=== PATIENT | female | born 2000 | race Caucasian/White ===

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

== ENCOUNTER 2018-01-19 14:13 | Emergency (ER) | payer OTHER ==
--- NOTE | 2018-01-19 16:33 | EDPHY ---
H & P Stated Complaint: pt states having menstrual cramps/same every month/no OTC meds Time Seen by Provider: 01/19/18 16:32 HPI/ROS: HPI: This is a 17-year-old female who presents with Chief Complaint: pt states having menstrual cramps/same every month/no OTC meds Location: pelvic Quality: Menstrual cramping Duration: 1 day Signs and Symptoms: no fever, + nausea, no vomiting, no hematemesis, no blood in stool, no abdominal bloating, no diarrhea, no back pain, no urinary symptoms , no vaginal discharge, no indigestion, no chest pain, no shortness of breath Timing: Acute, intermittent Severity: Moderate Context: Patient is generally healthy, presents with complaints left lower quadrant menstrual cramping that started this morning, nonradiating in nature. Described as sharp, cramping episodes that occur every 30 min to 1 hr. Patient reports that she has had to change her maxi pad approximately 2 times today in the last 9 hr. Patient reports that her menses occurs every 28-30 days. Usually last for 7 days. She reports that monthly in the 1st day or 2 of her menstrual cycle she experiences menstrual cramping. She is unable to swallow pills therefore did not take any [id number] medications. She is not sexually active. She is Nondenominational and denies ever having sexual intercourse. Patient has never seen an OBGYN or had a pelvic exam. Patient is an international student and has no primary care provider. Patient reports that she has not eaten today due to nausea but denies any vomiting, diarrhea, fevers , dysuria. She has no blood in her stool. She had a bowel movement yesterday. Modifying Factors: Has not tried any [id number] medication Comment: ROS: see HPI Constitutional: No fever, no chills, no weight loss Eyes: No blurred vision Respiratory: No shortness of breath, no cough Cardiovascular: No chest pain, no palpitations Gastrointestinal: No nausea, no vomiting, no diarrhea, no hematemesis, no blood in stool Genitourinary: No dysuria, no blood in urine Extremities: No myalgias, no edema Neurologic: No weakness, no numbness Skin: No rashes, no petechiae Hematologic: No bruising, no bleeding MEDICAL/SURGICAL/SOCIAL HISTORY: Medical history: recurrent face rash, dysmenorrhea. Does not take any regular medications. Surgical history: Denies Social history: International student. CONSTITUTIONAL: Extremely well-appearing teenage [place] female, awake and alert , no obvious distress HEENT: Atraumatic and normocephalic, PERRL, EOMI. Tympanic membranes clear. Oropharynx clear, no exudate and moist pink mucosa. Airway patent. No lymphadenopathy. No meningismus. Cardiovascular: Normal S1/S2, regular rate, regular rhythm, without murmur rub or gallop. PULMONARY/CHEST: Symmetrical and nontender. Clear to auscultation bilaterally. Good air movement. No accessory muscle usage. ABDOMEN: Soft, nondistended, mild left lower quadrant tenderness, no rebound, no guarding, no peritoneal signs, no masses or organomegaly. No CVAT. PELVIC: Patient refused due to anglican beliefs. EXTREMITIES: 2/2 pulses, strength 5/5, no deformities, no clubbing, no cyanosis or edema. NEUROLOGICAL: no focal neuro deficits. GCS 15. SKIN: Warm and dry, no erythema. no rash. Good capillary refill. Source: Patient Exam Limitations: No limitations - Personal History LMP (Females 10-55): Now Current Tetanus/Diphtheria Vaccine: Unsure - Medical/Surgical History Hx Asthma: No Hx Chronic Respiratory Disease: No Hx Diabetes: No Hx Cardiac Disease: No Hx Renal Disease: No Hx Cirrhosis: No Hx Alcoholism: No Hx HIV/AIDS: No Hx Splenectomy or Spleen Trauma: No Other PMH: recurrent face rash/menstrual cramps - Social History Smoking Status: Never smoked Constitutional: Initial Vital Signs Temperature (C) 36.9 C 01/19/18 14:28 Heart Rate 77 01/19/18 14:28 Respiratory Rate 18 01/19/18 14:28 Blood Pressure 129/88 H 01/19/18 14:28 O2 Sat (%) 99 01/19/18 14:28 O2 Delivery Mode Room Air Allergies/Adverse Reactions: No Known Allergies Allergy (Verified 01/19/18 14:28) Home Medications: Medication Instructions Recorded Acetaminophen [Tylenol 650/20.3ML 650 mg PO Q4 PRN #240 ml 01/19/18 Oral Liq (*)] Ibuprofen [Advil] 600 mg PO Q8 PRN #72 tab.chew 01/19/18 Medical Decision Making - Diagnostics Imaging Results: Imaging Impressions Pelvic/Renal Ultrasound 01/19/18 16:41 Impression: Normal ultrasound pelvis. ED Course/Re-evaluation: Labs, urinalysis, IV fluids, IV medications, pelvic ultrasound ordered Due to patient's anglican beliefs only abdominal ultrasound portion of the exam will be performed per patient request. Vital signs reviewed and stable. No systemic signs. Given 1 L normal saline, IV Toradol with adequate relief of pain 1752: Labs reviewed and grossly unremarkable and showed no signs of anemia/ acute kidney injury/electrolyte imbalance/transaminitis Urinalysis reviewed; no signs of infection. Blood noted consistent with menses. PELVIC: normal external genitalia, normal cervix, cervical os was closed, no cervical motion tenderness, no adnexal mass, no discharge, no bleeding. The exam was performed with a bank teller machine mechanic. Ultrasound shows no signs of ovarian torsion/ovarian cyst/free fluid Advised supportive care and development chemist follow-up This patient was seen under the supervision of my secondary supervising physician. I evaluated care for this patient independently. Differential Diagnosis: Abdominal pain in a female including but not limited to ovarian cyst, pelvic inflammatory disease, ovarian torsion, urinary tract infection, and appendicitis. - Data Points Laboratory Results: Laboratory Results 01/19/18 16:49 01/19/18 16:49 01/19/18 01/19/18 01/19/18 17:15 16:49 16:49 WBC RBC Hgb Hct MCV MCH MCHC RDW Plt Count MPV Neut % (Auto) Lymph % (Auto) [place] % (Auto) Eos % (Auto) Baso % (Auto) Nucleat RBC Rel Count Absolute Neuts (auto) Absolute Lymphs (auto) Absolute Monos (auto) Absolute Eos (auto) Absolute Basos (auto) Absolute Nucleated RBC Immature Gran % Immature Gran # Sodium 139 mEq/L mEq/L (135-145) Potassium 4.0 mEq/L mEq/L (3.5-5.2) Chloride 103 mEq/L mEq/L (97-110) Carbon Dioxide 21 mEq/l L mEq/l (22-31) Anion Gap 15 mEq/L mEq/L (8-16) BUN 5 mg/dL L mg/dL (7-23) Creatinine 0.5 mg/dL L mg/dL (0.6-1.0) Estimated GFR > 60 Glucose 97 mg/dL mg/dL (70-100) Calcium 10.0 mg/dL mg/dL (8.5-10.4) Total Bilirubin 1.4 mg/dL mg/dL (0.1-1.4) AST 21 IU/L IU/L (14-46) ALT 34 IU/L IU/L (9-52) Alkaline Phosphatase 77 IU/L IU/L (38-126) Total Protein 8.3 g/dL H g/dL (6.3-8.2) Albumin 5.0 g/dL g/dL (3.5-5.0) Beta HCG, Qual NEGATIVE Urine Color COLORLESS Urine Appearance CLEAR Urine pH 6.0 (5.0-7.5) Ur Specific [place] < 1.001 L (1.002-1.030) Urine Protein NEGATIVE (NEGATIVE) Urine Ketones NEGATIVE (NEGATIVE) Urine Blood 2+ H (NEGATIVE) Urine Nitrate NEGATIVE (NEGATIVE) Urine Bilirubin NEGATIVE (NEGATIVE) Urine Urobilinogen NEGATIVE EU EU (0.2-1.0) Ur Leukocyte Esterase NEGATIVE (NEGATIVE) Urine RBC 1-3 /hpf /hpf (0-3) Urine WBC 1-3 /hpf /hpf (0-3) Ur Epithelial Cells TRACE /lpf /lpf (NONE-1+) Urine Glucose NEGATIVE (NEGATIVE) 01/19/18 16:49 WBC 9.94 10^3/uL H 10^3/uL (3.80-9.50) RBC 5.03 10^6/uL 10^6/uL (4.18-5.33) Hgb 13.6 g/dL g/dL (12.6-16.3) Hct 40.8 % % (38.0-47.0) MCV 81.1 fL L fL (81.5-99.8) MCH 27.0 pg L pg (27.9-34.1) MCHC 33.3 g/dL g/dL (32.4-36.7) RDW 13.3 % % (11.5-15.2) Plt Count 308 10^3/uL 10^3/uL (150-400) MPV 9.7 fL fL (8.7-11.7) Neut % (Auto) 72.1 % % (39.3-74.2) Lymph % (Auto) 19.5 % % (15.0-45.0) [place] % (Auto) 7.3 % % (4.5-13.0) Eos % (Auto) 0.2 % L % (0.6-7.6) Baso % (Auto) 0.5 % % (0.3-1.7) Nucleat RBC Rel Count 0.0 % % (0.0-0.2) Absolute Neuts (auto) 7.16 10^3/uL H 10^3/uL (1.70-6.50) Absolute Lymphs (auto) 1.94 10^3/uL 10^3/uL (1.00-3.00) Absolute Monos (auto) 0.73 10^3/uL 10^3/uL (0.30-0.80) Absolute Eos (auto) 0.02 10^3/uL L 10^3/uL (0.03-0.40) Absolute Basos (auto) 0.05 10^3/uL 10^3/uL (0.02-0.10) Absolute Nucleated RBC 0.00 10^3/uL 10^3/uL (0-0.01) Immature Gran % 0.4 % % (0.0-1.1) Immature Gran # 0.04 10^3/uL 10^3/uL (0.00-0.10) Sodium Potassium Chloride Carbon Dioxide Anion Gap BUN Creatinine Estimated GFR Glucose Calcium Total Bilirubin AST ALT Alkaline Phosphatase Total Protein Albumin Beta HCG, Qual Urine Color Urine Appearance Urine pH Ur Specific [place] Urine Protein Urine Ketones Urine Blood Urine Nitrate Urine Bilirubin Urine Urobilinogen Ur Leukocyte Esterase Urine RBC Urine WBC Ur Epithelial Cells Urine Glucose Medications Given: Discontinued Medications Sodium Chloride (Ns) 1,000 mls @ 0 mls/hr IV ONCE ONE; Wide Open PRN Reason: Protocol Stop: 01/19/18 16:42 Last Admin: 01/19/18 16:50 Dose: 1,000 mls Ketorolac Tromethamine (Toradol) 30 mg IVP EDNOW ONE Stop: 01/19/18 16:42 Last Admin: 01/19/18 16:50 Dose: 30 mg Departure - Departure Disposition: Home, Routine, Self-Care Clinical Impression: Dysmenorrhea Condition: Good Instructions: Dysmenorrhea (ED) Additional Instructions: Consume a minimum of 8-10 glasses of water or electrolyte fluid replacement drinks that include Gatorade, Powerade, Pedialyte. Eat a bland diet for the next 48 hours and then slowly advance as tolerated. Take Tylenol 650 mg every 4 hour and/or Ibuprofen 600 mg every 8 hr as needed for pain. Apply heating pad to your lower abdomen to relieve her menstrual cramps. Establish care with OBGYN in the next 1-2 weeks to discuss menstrual cramps and possible treatment options. Return to the Emergency Room if symptoms do not resolve in the next 48-72 hours , you spike a fever > 102 F, or experience intractable abdominal pain/nausea/ vomiting. Referrals: Estephania Eaton MD [Medical Doctor] - As per Instructions Prescriptions: Acetaminophen [Tylenol 650/20.3ML Oral Liq (*)] 650 mg PO Q4 PRN #240 ml PRN Reason: Pain, Mild Ibuprofen [Advil] 600 mg PO Q8 PRN #72 tab.chew PRN Reason: Pain, Moderate
[2018-01-19] MEDS ORDERED: KETOROLAC 30 MG/1 ML SDV IVP ONE (16:41)
[2018-01-19] MEDS ORDERED: NS 1,000 ML IV ONE (16:41)
[2018-01-19 17:06] LABS: PLATELET COUNT 308 10^3/uL (150-400)
[2018-01-19 18:51] VITALS: BP 111/77
== END 2018-01-19 18:49 | disposition home or self-care (01) ==
DX: N94.6 Dysmenorrhea, unspecified (principal)
CPT/HCPCS: 96374; J1885